=== PATIENT | male | born 2000 | race African-American/Black ===

== ENCOUNTER 2025-01-12 15:26 | Outpatient (CLI) | payer OTHER ==
--- NOTE | 2025-01-12 16:28 | RADIOLOGY REPORT ---
EXAM: MR MRI LOWER EXTREMITY RIGHT knee INDICATION: SPRAIN OF ANTERIOR CRUCIATE TECHNIQUE: Multiplanar and multisequence MR imaging of the right knee was performed in the absence of gadolinium contrast. COMPARISON: None FINDINGS: The medial and lateral menisci are intact The posterior cruciate ligament is intact There is thickening and increased signal of the anterior cruciate ligament probably due to high-grade partial-thickness tear Collateral ligaments intact Quadriceps and patellar tendons are intact Trace joint effusion There is edema present in the lateral femoral condyle and lateral tibial plateau. IMPRESSION: 1. Partial tear anterior cruciate ligament 2. Bone bruise lateral femoral condyle and lateral tibial plateau
== END 2025-01-12 23:59 | disposition home or self-care (01) ==
LOC: MRI 15:26
PROVIDERS: ATTEND Family Medicine Sports Medicine
DX: S83.511A Sprain of anterior cruciate ligament of right knee, initial encounter (principal); S80.01XA Contusion of right knee, initial encounter; M25.561 Pain in right knee; X58.XXXA Exposure to other specified factors, initial encounter; Y93.89 Activity, other specified; Y92.89 Other specified places as the place of occurrence of the external cause; Y99.8 Other external cause status
CPT/HCPCS: 73721